=== PATIENT | female | born 1975 | race Caucasian/White ===

== ENCOUNTER 2022-03-18 06:44 | Day surgery (SDC) | payer OTHER ==
[2022-03-14 15:15] VITALS: BMI 23.8
[~2022-03-18 06:44] MED LIST: DEXAMETHASONE SOD PHOSPHATE 4 MG/ML 1 ML VIAL IV ONE; HEPARIN SODIUM,PORCINE/PF 5,000 UNIT/0.5 ML SYRINGE SQ PRN; HYDROmorphone 0.5 MG/0.5 ML SYRINGE IVP PRN; LACTATED RINGERS 1,000 ML IV SCH; ONDANSETRON 4 MG/2 ML VIAL IVP ONE; Pre Op ABX Message 1 EACH MISC MISCELLANE ONE
[2022-03-18] MEDS ORDERED: ALPRAZolam 0.5 MG TAB ONE (07:30)
[2022-03-18] MEDS: ACETAMINOPHEN TAB 500 MG TAB PO PRN ×2 (07:31→08:13)
--- NOTE | 2022-03-18 07:54 | P.GSHP ---
History of Present Illness H&P Date: 03/18/22 Chief Complaint: Right breast intraductal papilloma This a 38-year-old female who underwent previous stereotactic core biopsy at outside facility. Patient's found have a intraductal papilloma the right breast. Patient presents today for right breast biopsy with needle loca lization. Past Medical History Past Medical History: No Reported History History of Any Multi-Drug Resistant Organisms: None Reported Past Surgical History: Hysterectomy Past Anesthesia/Blood Transfusion Reactions: No Reported Reaction Past Psychological History: No Psychological Hx Reported Smoking Status: Never smoker Past Alcohol Use History: Occasional Past Drug Use History: None Reported - Past Family History Mother Family Medical History: Blood Disorder Additional Family Medical History / Comment(s): Unknown name of blood disorder. Medications and Allergies Home Medications Medication Instructions Recorded Confirmed Type Zolpidem Tartrate [Ambien] 5 mg PO HS 03/14/22 03/18/22 History Allergies Allergy/AdvReac Type Severity Reaction Status Date / Time No Known Allergies Allergy Verified 03/18/22 07:11 Surgical - Exam Vital Signs Temp Pulse Resp BP Pulse Ox 97.3 F L 69 16 116/81 100 03/18/22 07:20 03/18/22 07:20 03/18/22 07:20 03/18/22 07:20 03/18/22 07:20 - General well developed, well nourished, no distress - Eyes PERRL - ENT normal pinna - Neck no masses - Respiratory normal expansion - Cardiovascular Rhythm: regular - Abdomen Abdomen: soft, non tender - Integumentary Breasts within normal limits Assessment and Plan Assessment: Right breast intraductal papilloma. We'll perform right breast biopsy with needle localized biopsy.
[2022-03-18] MEDS ORDERED: LIDOCAINE 1%-EPI 1:100,000 20 ML VIAL SQ ONE (08:13)
[2022-03-18] MEDS ORDERED: BUPIVACAIN-EPI 0.25%-1:200,000 30 ML VIAL SQ ONE ×2 (09:46→10:24)
[2022-03-18] MEDS ORDERED: SUCCINYLCHOLINE CHLORIDE 200 MG/10 ML VIAL IV ONE (09:48)
[2022-03-18] MEDS ORDERED: KETOROLAC 15 MG/ML 1 ML VIAL ONE (09:48)
[2022-03-18] MEDS ORDERED: fentaNYL (PF) 50 MCG/ML 2 ML AMP ONE (09:48)
[2022-03-18] MEDS ORDERED: MIDAZOLAM 2 MG/2 ML VIAL ONE (09:48)
[2022-03-18] MEDS ORDERED: PROPOFOL 10 MG/ML 20 ML VIAL IV ONE (09:48)
[2022-03-18] MEDS ORDERED: LIDOCAINE 2% INJ 20 MG/ML (2 ML VIAL) ONE (09:48)
[2022-03-18] MEDS ORDERED: ceFAZolin 1,000 MG VIAL ONE (09:48)
[2022-03-18] MEDS ORDERED: SODIUM CHLORIDE 0.9% 50 ML with ceFAZolin 1,000 MG IV ONE ×2 (10:15)
--- NOTE | 2022-03-18 10:45 | P.OP ---
Date of Procedure: 03/18/22 Preoperative Diagnosis: Right breast intraductal papilloma Postoperative Diagnosis: Defer to pathology Procedure(s) Performed: Right breast biopsy with needle localization Anesthesia: PITA Surgeon: Misael Fortune Estimated Blood Loss (ml): 5 Pathology: other (Breast biopsy) Condition: stable Disposition: PACU Description of Procedure: The patient's placed on the operating table in the supine position. She received general endotracheal anesthesia. Her right breast was prepped and draped usual sterile fashion. The wire was located at the 10 o'clock position. A skin incision was made at the wire site. And then using left cautery in the Harmonic scissors a core of tissue was removed from L1 the wire. The specimen was painted to orientate the specimen. The specimen sent to imaging for confirmation that the clip was in the specimen. This was achieved. Hemostasis achieved with cautery. The skin was closed interrupted 3-0 Monocryl suture. Dermabond was applied. Patient top she will was sent to recovery in stable condition.
[2022-03-18 10:52] VITALS: TEMP 97.5
[2022-03-18 11:39] VITALS: RESP 18
[2022-03-18 11:55] VITALS: BP 104/67; PULSE 84
--- NOTE | 2022-03-21 08:49 | MM ---
Risk Values: Anupama 5 year model risk: 0.6%. NCI Lifetime model risk: 6.1%. Pathology Description: Approach: Lateral to Medial Needle Type: 7 cm Kopan The procedure of needle localization with wire placement and than surgical excision was explained to the patient. Benefits, alternatives, and risks were discussed. An informed consent was then obtained. The shortest pathway for procedure was chosen. Shortest pathway was lateral approach. The overlying skin was prepped and draped in usual sterile fashion. Lidocaine buffered with bicarbonate was used as anesthetic into the skin and subcutaneous tissue up to the level of area of concern. A 7 cm needle was used. It was placed via a lateral approach under mammographic guidance. Subsequent 90 degrees mammogram show the needle to be in satisfactory position relative to the targeted area. At this point, wire was placed and the needle was withdrawn. The wire was fixed to patient's skin. Images were marked for surgeon. The patient tolerated the procedure well without any immediate complication. The patient was kept in the radiology department for short stay after the procedure and then taken to surgery for surgical excision. Targeted clip and wire are identified in specimen mammogram. The patient was kept in hospital for short stay after the procedure and then discharged home in stable condition. Impression: Successful, uncomplicated needle localization with wire placement and surgical excision of targeted clip in the right breast, full pathology results to follow. Pathology Results: Result: High risk, Atypical ductal hyperplasia. RIGHT BREAST, LUMPECTOMY: Focal 2 mm area of atypical ductal hyperplasia bordering on low grade DCIS (see note). Margins negative for lesional tissue with atypical ductal focus measuring greater than 2 mm from the closest medial margin. Background breast with fibrocystic change having apocrine metaplasia, columnar cell change, focal microcalcification, sclerosing adenosis and usual ductal hyperplasia. Overall Assessment: High risk Management: Diagnostic Mammogram of the right breast in 6 months. Excised with good margins. Electronically signed and approved by: Marques Araiza DO
== END 2022-03-18 12:30 | disposition home or self-care (01) ==
LOC: OR 06:44
PROVIDERS: ATTEND Surgery
DX: D24.1 Benign neoplasm of right breast (principal); Z90.710 Acquired absence of both cervix and uterus; Z83.2 Family history of diseases of the blood and blood-forming organs and certain disorders involving the immune mechanism; Z79.899 Other long term (current) drug therapy
CPT/HCPCS: 76098; 19281; 19125; C1819; J2250; J0330; J1100; J2405; J0690; J3010; J1885; J2704; J1644; J2001; 88307